=== PATIENT | male | born 1990 | race Caucasian/White ===

== ENCOUNTER 2020-10-01 09:13 | Emergency (ER) | payer MEDICAID ==
[2020-10-01] MEDS ORDERED: Alum Hydrox/Mag Hydrox/Simeth 15 ML, Lidocaine 2% 15 ML PO ONE ×2 (09:54)
--- NOTE | 2020-10-01 09:59 | EDM.PDOC ---
ED HPI GENERAL MEDICAL PROBLEM - General Chief Complaint: Gastrointestinal Problem Stated Complaint: Acid Reflux, BLOOD IN STOOL Time Seen by Provider: 10/01/20 09:45 Source of Information: Reports: Patient, Old Records, RN History Limitations: Reports: No Limitations - History of Present Illness INITIAL COMMENTS - FREE TEXT/NARRATIVE: 29 yo male here with LUQ abdominal pain and blood in his stools. He has had this problem in the past, but when he was scoped (up and down) they didn't find a lot. He was prescribed Protonix and Carafate which he continues on. He had a telemedicine appt yesterday at [facility] here in [place] and was told to make an appt to be seen in person. His problem worsened since then so he decided to come here instead. He reportedly both smokes and uses max doses of ibuprofen every day. No vomiting. No fever. Onset: Gradual, Unknown/Unsure Duration: Day(s):, Getting Worse Location: Reports: Abdomen (LUQ) Quality: Reports: Ache Severity: Moderate Worsens with: Reports: Other (time) Context: Reports: Other (See HPI) Associated Symptoms: Reports: Other (bloody stools). 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: Reports: Acetaminophen, NSAIDS, Other (see below) (usual meds) - Related Data Allergies Allergy/AdvReac Type Severity Reaction Status Date / Time No Known Allergies Allergy Verified 10/01/20 09:26 Home Meds: Home Meds Acetaminophen [Tylenol] 1,000 mg PO QID 10/01/20 [History] DULoxetine HCl [Cymbalta] 120 mg PO DAILY 10/01/20 [History] Ibuprofen [Ibu] 800 mg PO QID 10/01/20 [History] Loratadine [Claritin] 10 mg PO DAILY 10/01/20 [History] Modafinil [Provigil] 200 mg PO DAILY 10/01/20 [History] Multivitamin 1 each PO DAILY 10/01/20 [History] Pantoprazole Sodium [Protonix] 20 mg PO DAILY 10/01/20 [History] SUMAtriptan [Imitrex] 50 mg PO ASDIRECTED PRN 10/01/20 [History] Sucralfate [Carafate] 1 gm PO QID 10/01/20 [History] Vitamin B Complex 1 each PO DAILY 10/01/20 [History] predniSONE [Prednisone] 40 mg PO DAILY 10/01/20 [History] tiZANidine 2 mg PO Q8H 10/01/20 [History] Past Medical History HEENT History: Reports: Impaired Vision Genitourinary History: Reports: Other (See Below) Other Genitourinary History: urgency Musculoskeletal History: Reports: Back Pain, Chronic Neurological History: Reports: Migraines Psychiatric History: Reports: Anxiety, Depression, Panic Attack - Past Surgical History Head Surgeries/Procedures: Reports: None Neurological Surgical History: Reports: None Musculoskeletal Surgical History: Reports: Other (See Below) Other Musculoskeletal Surgeries/Procedures:: shoulder Dermatological Surgical History: Reports: None Social & Family History - Tobacco Use Tobacco Use Status *Q: Current Every Day Tobacco User Years of Tobacco use: 12 Packs/Tins Daily: 1 Used Tobacco, but Quit: No Second Hand Smoke Exposure: No - Caffeine Use Caffeine Use: Reports: Coffee, Soda - Recreational Drug Use Recreational Drug Use: Yes Drug Use in Last 12 Months: Yes Recreational Drug Type: Reports: Marijuana/Hashish Recreational Drug Use Frequency: Daily ED ROS GENERAL - Review of Systems Review Of Systems: See Below Constitutional: Reports: No Symptoms HEENT: Reports: No Symptoms Respiratory: Reports: No Symptoms Cardiovascular: Reports: Lightheadedness (at times) Endocrine: Reports: No Symptoms GI/Abdominal: Reports: Abdominal Pain (LUQ), Black Stool, Bloody Stool, Hematochezia, Melena. Denies: Constipation, Diarrhea, Hematemesis, Nausea, Vomiting : Reports: No Symptoms Musculoskeletal: Reports: No Symptoms Skin: Reports: No Symptoms ED EXAM, GI/ABD - Physical Exam Exam: See Below Exam Limited By: No Limitations General Appearance: Alert, WD/WN, No Apparent Distress Eyes: Bilateral: Normal Appearance Ears: Normal External Exam, Normal Canal, Hearing Grossly Normal, Normal TMs Nose: Normal Inspection, No Blood Throat/Mouth: Normal Inspection, Normal Lips, Normal Oropharynx, Normal Voice, No Airway Compromise Head: Atraumatic, Normocephalic Neck: Normal Inspection Respiratory/Chest: No Respiratory Distress, Lungs Clear, Normal Breath Sounds, No Accessory Muscle Use Cardiovascular: Regular Rate, Rhythm, No Edema GI/Abdominal Exam: Normal Bowel Sounds, Soft, No Distention, Tender (LUQ, only minimally worse with palpation). No: Non-Tender, Distended, Guarding, Rigid, Rebound, Abnormal Bowel Sounds Back Exam: Normal Inspection. No: CVA Tenderness (R), CVA Tenderness (L) Extremities: Normal Inspection, Normal Range of Motion, Non-Tender, No Pedal Edema Neurological: Alert, Oriented, CN II-XII Intact, Normal Cognition, No Motor/Sensory Deficits Psychiatric: Normal Affect, Normal Mood Skin Exam: Warm, Dry, Intact, Normal Color, No Rash Course - Vital Signs Last Recorded V/S: Last Vital Signs Temp 36.6 C 10/01/20 09:32 Pulse 106 H 10/01/20 09:32 Resp 16 10/01/20 09:32 BP 148/95 H 10/01/20 09:32 Pulse Ox 98 10/01/20 09:32 Orthostatic Blood Pressure [ 126/85 Standing] Orthostatic Blood Pressure [ 117/81 Sitting] Orthostatic Blood Pressure [ 123/70 Supine] - Orders/Labs/Meds Orders: Active Orders 24 hr Category Date Time Status Orthostatic Vital Signs [RC] ASDIRECTED Care 10/01/20 09:48 Active Labs: Laboratory Tests 10/01/20 Range/Units 09:48 WBC 11.9 H (4.5-11.0) K/uL RBC 5.33 (4.30-5.90) M/uL Hgb 16.0 H (12.0-15.0) g/dL Hct 47.4 (40.0-54.0) % MCV 89 (80-98) fL MCH 30 (27-31) pg MCHC 34 (32-36) % Plt Count 357 (150-400) K/uL Meds: Medications Discontinued Medications Generic Name Dose Route Start Last Admin Trade Name Freq PRN Reason Stop Dose Admin Al Hydroxide/Mg Hydroxide 15 0 ml 10/01/20 09:54 10/01/20 10:00 ml/ Lidocaine HCl 15 ml PO 10/01/20 09:55 15 ml ONETIME ONE Administration - Re-Assessments/Exams Free Text/Narrative Re-Assessment/Exam: 10/01/20 10:12 Partial relief with GI cocktail po Departure - Departure Time of Disposition: 10:44 Disposition: Home, Self-Care 01 Condition: Fair Clinical Impression: Peptic ulcer hemorrhage, Tobacco use disorder, Chronic pain syndrome - Discharge Information *PRESCRIPTION DRUG MONITORING PROGRAM REVIEWED*: Not Applicable *COPY OF PRESCRIPTION DRUG MONITORING REPORT IN PATIENT NOHEMY: Not Applicable Instructions: Peptic Ulcer, [id number], Steps to Quit Smoking, [id number], Gastrointestinal Bleeding, [id number] Referrals: Bindu Keller PA-C [Primary Care Provider] - Forms: ED Department Discharge Additional Instructions: Stop the ibuprofen. You may continue to use acetaminophen up to 1000 mg every 6 hrs as needed. Substitute celecoxib 200 mg every 12 hrs for the ibuprofen, take with meals. Add Cytotec to help your stomach produce the protective mucous layer that NSAID's destroy. Work hard on quitting smoking as this also makes you at much higher risk of stomach ulcer formation. Drink lots of fluids today, but avoid alcohol, carbonated beverages, any NSAID, or caffeine. F/U in the clinic tomorrow. Return today if your bleeding gets a lot worse. Sepsis Event Note (ED) - Evaluation Sepsis Screening Result: No Definite Risk - Focused Exam Vital Signs: Vital Signs Temp Pulse Resp BP Pulse Ox 10/01/20 09:32 36.6 C 106 H 16 148/95 H 98 10/01/20 09:25 36.6 C 106 H 16 148/95 H 98 - My Orders Last 24 Hours: My Active Orders 10/01/20 09:48 Orthostatic Vital Signs [RC] ASDIRECTED - Assessment/Plan Last 24 Hours: My Active Orders 10/01/20 09:48 Orthostatic Vital Signs [RC] ASDIRECTED
== END 2020-10-01 10:54 | disposition home or self-care (01) ==
LOC: JP.ED 09:13
DX: K27.4 Chronic or unspecified peptic ulcer, site unspecified, with hemorrhage (principal); G89.4 Chronic pain syndrome; R10.12 Left upper quadrant pain; Z72.0 Tobacco use; Z79.899 Other long term (current) drug therapy
CPT/HCPCS: 36415; 85027; 99284; A9270

== ENCOUNTER 2020-11-06 07:51 | Day surgery (SDC) | payer MEDICAID ==
[2020-11-06] MEDS ORDERED: Dextrose 5%-Lactated Ringers 1,000 ML IV SCH (08:30)
[2020-11-06] MEDS ORDERED: Propofol 200 MG/20 ML SDV ONE ×2 (12:53→12:54)
[2020-11-06] MEDS ORDERED: fentaNYL 100 MCG/2 ML SDV ONE (12:54)
[2020-11-06] MEDS ORDERED: Midazolam 1 MG/ML 2 ML SDV ONE (12:54)
--- NOTE | 2020-11-21 14:26 | OR ---
DATE OF PROCEDURE: 11/06/2020 SURGEON: Pietro Dutton MD PREOPERATIVE DIAGNOSIS: History of recent bright red blood per rectum and more remote history of black stools associated with NSAID use. POSTOPERATIVE DIAGNOSES: 1. History of recent bright red blood per rectum and remote history of black stools associated with NSAID use. 2. Upper GI endoscopy showing: a. Small hiatal hernia with mild gastroesophageal reflux disease. b. Mild antral gastritis and proximal duodenitis. 3. Colonoscopic examination showing normal exam other than for excoriated hemorrhoids. OPERATIVE PROCEDURES: 1. Upper GI endoscopy with: a. Biopsies of esophagogastric junction for histological evaluation. b. Biopsies of antrum for CLOtest. 2. Flexible colonoscopy. ANESTHESIA: IV sedation. INDICATION FOR PROCEDURE: The patient presents for upper and lower endoscopy, has history of some black stools on the more remote past, which was felt to be related to NSAID use. The patient appeared to have been switched over to Celebrex for his NSAID, he is also on prednisone chronically which would put him at high risk for problems with gastritis, duodenitis, and peptic ulcer disease. The patient also more recently has had some bright red blood per rectum typically occurring with bowel movements. Plan is to proceed with upper and lower endoscopy with biopsies and polypectomy as indicated. Potential risks including bleeding and perforation were discussed, and the patient wishes to proceed. DETAILS OF PROCEDURE: The patient was taken to the operating room and placed in a left lateral decubitus position. IV sedation was administered, after which the upper GI endoscope was passed orally through the length of the esophagus into the stomach with retroflexion view of the fundus, and thereafter through the pyloric channel into the proximal duodenum. Findings included normal hypopharynx, larynx, upper esophageal sphincter, and esophageal body. At the EG junction, a small hiatal hernia was present with otherwise some mild edema and redness of the distal esophageal mucosa. Remainder of the stomach had some patchy redness in the antrum and duodenal bulb. No erosions or ulcers were seen. At this point, there were no areas of likely recent GI bleeding sites. Biopsies were obtained from the antrum and sent for CLOtest for H pylori. Multiple biopsies had been obtained from esophagogastric junction and sent for histologic evaluation. Attention was then taken to the colonoscopy. Initial digital rectal exam was performed, it was unremarkable. Colonoscope was passed into the rectum with retroflexion revealing some quite excoriated-appearing hemorrhoidal columns. Scope was eventually passed to the cecum. The prep was fairly good along with small amount of liquid stool was present to that level. There were no areas of colitis or diverticular disease, and no polyps or other signs of neoplasia. Scope was then withdrawn. The above findings reconfirmed, and the procedure then concluded. It appears that the present medical management consisting of Celebrex and prednisone along with Protonix, Carafate, and Cytotec are controlling the upper GI inflammation satisfactorily. Over time, one might try to deescalate the management of the upper GI mucosa, perhaps stopping the Carafate, but continuing the Protonix and Cytotec as long as the patient needs to be on prednisone and some form of NSAID, which at this point appears to be Celebrex. The patient's recent bright red blood per rectum almost certainly has to do with hemorrhoidal bleeding. At this point, this has become fairly minimal and referral for hemorrhoid banding could be considered should there be a recurrence of high grade of a persistent bright red blood per rectum. Pietro Dutton MD /[id number]
== END 2020-11-06 14:25 | disposition home or self-care (01) ==
LOC: JP.SDS 07:51
PROVIDERS: ATTEND Surgery
DX: K64.9 Unspecified hemorrhoids (principal); K22.8 Other specified diseases of esophagus; K44.9 Diaphragmatic hernia without obstruction or gangrene; K21.9 Gastro-esophageal reflux disease without esophagitis; K29.90 Gastroduodenitis, unspecified, without bleeding
CPT/HCPCS: 43239; 45378; 87081; 88305; J2250; J2704; J3010; J7121

== ENCOUNTER 2020-12-10 10:01 | Emergency (ER) | payer MEDICAID ==
--- NOTE | 2020-12-10 13:47 | EDM.PDOC ---
ED HPI GENERAL MEDICAL PROBLEM - General Chief Complaint: Gastrointestinal Problem Stated Complaint: ABD AND BACK PAIN Time Seen by Provider: 12/10/20 13:03 Source of Information: Reports: Patient History Limitations: Reports: No Limitations - History of Present Illness INITIAL COMMENTS - FREE TEXT/NARRATIVE: 30 yo male presents to ER with right flank pain. pain initiated this morning right flank and has radiated into the right side of ABD. py does have new dx of ulcerated to colitis and a history of GERD. afebrile. normal day yesterday denies change in activity or straining his back. - Related Data Allergies Allergy/AdvReac Type Severity Reaction Status Date / Time cats Allergy Rash Uncoded 12/10/20 13:10 Home Meds: Home Meds Acetaminophen [Tylenol] 1,000 mg PO QID PRN 10/01/20 [History] Celecoxib 200 mg PO BID PRN #30 capsule 10/01/20 [Rx] DULoxetine HCl [Cymbalta] 120 mg PO DAILY 10/01/20 [History] Loratadine [Claritin] 10 mg PO DAILY 10/01/20 [History] Modafinil [Provigil] 200 mg PO DAILY 10/01/20 [History] Multivitamin 1 each PO DAILY 10/01/20 [History] Pantoprazole Sodium [Protonix] 20 mg PO DAILY 10/01/20 [History] SUMAtriptan [Imitrex] 50 mg PO ASDIRECTED PRN 10/01/20 [History] Sucralfate [Carafate] 1 gm PO QID 10/01/20 [History] Vitamin B Complex 1 each PO DAILY 10/01/20 [History] miSOPROStoL [Cytotec] 200 mcg PO QID #120 tablet 10/01/20 [Rx] tiZANidine 2 mg PO Q8H 10/01/20 [History] buPROPion [Wellbutrin SR] 150 mg PO BID 10/23/20 [History] Ciprofloxacin [Cipro XR] 1 tab PO BID 12/10/20 [History] metroNIDAZOLE [Metronidazole] 1 tab PO TID 12/10/20 [History] Past Medical History HEENT History: Reports: Allergic Rhinitis, Impaired Vision Gastrointestinal History: Reports: Colon Polyp, GERD, Other (See Below) Other Gastrointestinal History: elevated liver enzymes Genitourinary History: Reports: Other (See Below) Other Genitourinary History: urgency, possible renal calculus Musculoskeletal History: Reports: Back Pain, Chronic Neurological History: Reports: Migraines, Other (See Below) Other Neuro History: central pain syndrome, facial neuropathy Psychiatric History: Reports: Anxiety, Depression, Panic Attack Dermatologic History: Reports: Other (See Below) Other Dermatologic History: cyst on abdomen - Past Surgical History Head Surgeries/Procedures: Reports: None GI Surgical History: Reports: Colonoscopy, EGD Neurological Surgical History: Reports: None Musculoskeletal Surgical History: Reports: Other (See Below) Other Musculoskeletal Surgeries/Procedures:: shoulder, rotator cuff repair Dermatological Surgical History: Reports: None Social & Family History - Tobacco Use Tobacco Use Status *Q: Current Every Day Tobacco User Years of Tobacco use: 14 Packs/Tins Daily: 0.5 - Caffeine Use Caffeine Use: Reports: Coffee, Soda ED ROS GENERAL - Review of Systems Review Of Systems: See Below Constitutional: Denies: Fever, Chills, Fatigue Respiratory: Denies: Shortness of Breath, Wheezing, Cough Cardiovascular: Denies: Chest Pain GI/Abdominal: Reports: Abdominal Pain : Reports: Flank Pain Skin: Denies: Rash Neurological: Denies: Dizziness, Headache ED EXAM, GI/ABD - Physical Exam Exam: See Below Exam Limited By: No Limitations General Appearance: Alert, WD/WN, No Apparent Distress Head: Atraumatic, Normocephalic Respiratory/Chest: No Respiratory Distress, Lungs Clear, Normal Breath Sounds, No Accessory Muscle Use, Chest Non-Tender. No: Crackles, Rhonchi, Wheezing Cardiovascular: Regular Rate, Rhythm, No Murmur GI/Abdominal Exam: Soft, Non-Tender Back Exam: Full Range of Motion, CVA Tenderness (R). No: CVA Tenderness (L) Neurological: Alert, Oriented Psychiatric: Normal Affect, Normal Mood Skin Exam: Warm, Dry, Intact Course - Vital Signs Last Recorded V/S: Last Vital Signs Temp 36.3 C 12/10/20 13:19 Pulse 67 12/10/20 14:58 Resp 15 12/10/20 13:19 BP 113/69 12/10/20 14:58 Pulse Ox 99 12/10/20 14:58 - Orders/Labs/Meds Orders: Active Orders 24 hr Category Date Time Status UA W/MICROSCOPIC [URIN] Stat Lab 12/10/20 13:20 Ordered UA W/O MICROSCOPIC [URIN] Stat Lab 12/10/20 13:47 Ordered Ketorolac [Toradol] Med 12/10/20 13:48 Once 30 mg IVPUSH ONETIME ONE Sodium Chloride 0.9% [Normal Saline] 1,000 ml Med 12/10/20 14:00 Ordered IV ASDIRECTED Labs: Laboratory Tests 12/10/20 Range/Units 14:39 Urine Color Brown A (YELLOW) Urine Appearance Cloudy A (CLEAR) Urine pH 6.0 (5.0-8.0) Ur Specific [place] >= 1.030 (1.008-1.030) Urine Protein 100 H (NEGATIVE) mg/dL Urine Glucose (UA) Negative (NEGATIVE) mg/dL Urine Ketones Negative (NEGATIVE) mg/dL Urine Occult Blood Moderate H (NEGATIVE) Urine Nitrite Negative (NEGATIVE) Urine Bilirubin Small H (NEGATIVE) Urine Urobilinogen 0.2 (0.2-1.0) EU/dL Ur Leukocyte Esterase Trace H (NEGATIVE) Urine RBC Packed H (0-5) Urine WBC 10-20 H (0-5) Ur Epithelial Cells Rare Amorphous Sediment Rare Urine Bacteria Moderate Urine Mucus Rare Urine Other Meds: Medications Discontinued Medications Generic Name Dose Route Start Last Admin Trade Name Freq PRN Reason Stop Dose Admin Sodium Chloride 1,000 mls @ 999 mls/hr 12/10/20 14:45 12/10/20 14:56 Normal Saline IV 12/10/20 15:45 999 mls/hr ONETIME ONE Administration Ketorolac Tromethamine 30 mg 12/10/20 14:45 12/10/20 14:56 Ketorolac 30 Mg/Ml Sdv IVPUSH 12/10/20 14:46 30 mg ONETIME ONE Administration - Re-Assessments/Exams Free Text/Narrative Re-Assessment/Exam: 12/10/20 15:56 pain controlled with IV pain medication, evidence of uric stones in UA, blood in UA he did have a CT ABD earlier this month that showed multiple small stones. will DC on pain management and flomax to follow-up in primary care Departure - Departure Time of Disposition: 16:03 Disposition: Home, Self-Care 01 Condition: Good Clinical Impression: Kidney stone - Discharge Information *PRESCRIPTION DRUG MONITORING PROGRAM REVIEWED*: Not Applicable *COPY OF PRESCRIPTION DRUG MONITORING REPORT IN PATIENT NOHEMY: Not Applicable Instructions: Kidney Stones, [id number] Referrals: Bindu Keller PA-C [Primary Care Provider] - Forms: ED Department Discharge Additional Instructions: increase fluid intake with goal of half your body weight in ounces of fluid Ketoralac 10 mg every 6 hours as needed for pain flomax to help the stones pass increase plant base to your diet with goal of 6-9 servings of vegetables and fruits per day Sepsis Event Note (ED) - Evaluation Sepsis Screening Result: No Definite Risk - Focused Exam Vital Signs: Vital Signs Temp Pulse Resp BP Pulse Ox 12/10/20 14:58 67 113/69 99 12/10/20 13:19 36.3 C 87 15 104/63 99 12/10/20 13:04 36.3 C 87 15 104/63 99 - My Orders Last 24 Hours: My Active Orders 12/10/20 13:20 UA W/MICROSCOPIC [URIN] Stat 12/10/20 13:47 UA W/O MICROSCOPIC [URIN] Stat 12/10/20 13:48 Ketorolac [Toradol] 30 mg IVPUSH ONETIME ONE 12/10/20 14:00 Sodium Chloride 0.9% [Normal Saline] 1,000 ml IV ASDIRECTED - Assessment/Plan Last 24 Hours: My Active Orders 12/10/20 13:20 UA W/MICROSCOPIC [URIN] Stat 12/10/20 13:47 UA W/O MICROSCOPIC [URIN] Stat 12/10/20 13:48 Ketorolac [Toradol] 30 mg IVPUSH ONETIME ONE 12/10/20 14:00 Sodium Chloride 0.9% [Normal Saline] 1,000 ml IV ASDIRECTED
[2020-12-10] MEDS ORDERED: Ketorolac 30 MG/ML SDV IVPUSH ONE ×2 (13:48→14:45)
[2020-12-10] MEDS ORDERED: Sodium Chloride 0.9% 1,000 ML IV SCH (14:00)
[2020-12-10] MEDS ORDERED: Sodium Chloride 0.9% 1,000 ML IV ONE (14:45)
== END 2020-12-10 16:24 | disposition home or self-care (01) ==
LOC: JP.ED 10:01
DX: N20.0 Calculus of kidney (principal); K21.9 Gastro-esophageal reflux disease without esophagitis; Z91.048 Other nonmedicinal substance allergy status; Z79.899 Other long term (current) drug therapy; Z72.0 Tobacco use
CPT/HCPCS: 81001; 96374; 99284; J1885; J7030

== ENCOUNTER 2021-03-20 07:03 | Day surgery (SDC) | payer MEDICAID ==
[~2021-03-20 07:03] MED LIST: Sodium Chloride 0.9% 1,000 ML IV SCH
[2021-03-20] MEDS ORDERED: Midazolam 1 MG/ML 2 ML SDV ONE (07:32)
[2021-03-20] MEDS ORDERED: fentaNYL 100 MCG/2 ML SDV ONE (07:32)
[2021-03-20] MEDS ORDERED: Propofol 200 MG/20 ML SDV ONE ×2 (07:32→08:21)
--- NOTE | 2021-03-20 15:05 | OR ---
DATE OF PROCEDURE: 03/20/2021 SURGEON: Orlando Perla MD PROCEDURES: 1. Esophagogastroduodenoscopy. 2. Colonoscopy. FINDINGS: 1. Mild inflammation at the GE junction concerning for reflux disease (biopsied using cold biopsy forceps in all 4 quadrants). 2. Very mild gastritis (biopsied for H. pylori evaluation purposes). 3. Very mild inflammation in the rectum (biopsied using cold biopsy forceps). COMPLICATIONS: None. POLICY SERVICES REPRESENTATIVE: None. ANESTHESIA: MAC. PREOPERATIVE DIAGNOSES: 1. Gastrointestinal bleeding. 2. Abdominal pain. POSTOPERATIVE DIAGNOSES: 1. Gastrointestinal bleeding. 2. Abdominal pain. RISKS: Risks, benefits, alternatives, and limitations including but not limited to infection, bleeding, perforation, false positives, and false negatives were explained to the patient who wished to proceed. PROCEDURE IN DETAIL: The patient was placed in left lateral decubitus position. The EGD scope was introduced and advanced atraumatically into the second part of the duodenum. No evidence of duodenitis or ulceration. No old or new blood. Within the stomach itself, the patient had some very mild gastritis. This was biopsied in proximity for H. pylori evaluation. On retroflex, there was no hiatal hernia. The air was removed from the stomach. The GE junction had 2 areas less than 1 cm concerning for reflux disease. This was biopsied using cold biopsy forceps and the remaining 3 quadrants. The remainder of esophagus was normal. Digital rectal exam performed next. Scope was introduced and advanced atraumatically to the ileocecal valve. A photo was taken of the appendiceal orifice. The scope was brought back to the ascending, transverse, and descending colon and retroflexed. The only inflammation noted in the colon was in the rectum, which may have been artifactual. However, this was biopsied using cold biopsy forceps. No diverticulosis. No masses. No polyps. No significant or obvious evidence of colitis. No bleeding. On retroflexion, he had no prominent hemorrhoids. Greater than 8 minutes was spent removing the scope. The prep was acceptable with approximately 90% of luminal surface could be seen. The patient tolerated the procedure well. Orlando Perla MD /[id number]
== END 2021-03-20 09:43 | disposition home or self-care (01) ==
LOC: JP.SDS 07:03
PROVIDERS: ATTEND Surgery
DX: K62.89 Other specified diseases of anus and rectum (principal); K29.50 Unspecified chronic gastritis without bleeding; K20.90 Esophagitis, unspecified without bleeding
CPT/HCPCS: 43239; 45380; J2250; J2704; J3010; J7030; 88305; 88342

== ENCOUNTER 2021-06-20 06:54 | Emergency (ER) | payer MEDICAID ==
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
== END 2021-06-20 08:41 | disposition home or self-care (01) ==
LOC: JP.ED 06:54
DX: T58.91XA Toxic effect of carbon monoxide from unspecified source, accidental (unintentional), initial encounter (principal); K21.9 Gastro-esophageal reflux disease without esophagitis; Z91.048 Other nonmedicinal substance allergy status; Z79.899 Other long term (current) drug therapy
CPT/HCPCS: 82803; 99284

== ENCOUNTER 2022-04-30 10:58 | Emergency (ER) | payer MEDICAID | END 2022-04-30 11:35 | disposition home or self-care (01) | LOC: JP.ED 10:58 | DX: L72.0 Epidermal cyst (principal); F17.210 Nicotine dependence, cigarettes, uncomplicated; Z91.048 Other nonmedicinal substance allergy status; Z79.899 Other long term (current) drug therapy | CPT/HCPCS: 99282 ==

== ENCOUNTER 2022-06-19 12:09 | Emergency (ER) | payer MEDICAID ==
[2022-06-19 13:08] LABS: CORONAVIRUS COVID-19 NAA NEGATIVE (NEGATIVE)
== END 2022-06-19 13:40 | disposition home or self-care (01) ==
LOC: JP.ED 12:09
DX: J10.1 Influenza due to other identified influenza virus with other respiratory manifestations (principal); K21.9 Gastro-esophageal reflux disease without esophagitis; Z91.048 Other nonmedicinal substance allergy status; Z79.899 Other long term (current) drug therapy; Z20.822 Contact with and (suspected) exposure to COVID-19
CPT/HCPCS: 0241U; 99283

== ENCOUNTER 2022-08-02 17:28 | Emergency (ER) | payer MEDICAID ==
[2022-08-02] MEDS ORDERED: Ketorolac 15 MG/ML SDV IM ONE (17:48)
== END 2022-08-02 18:34 | disposition home or self-care (01) ==
LOC: JP.ED 17:28
DX: S80.02XA Contusion of left knee, initial encounter (principal); S84.92XA Injury of unspecified nerve at lower leg level, left leg, initial encounter; K21.9 Gastro-esophageal reflux disease without esophagitis; F41.9 Anxiety disorder, unspecified; F32.A Depression, unspecified; Z79.899 Other long term (current) drug therapy; Z91.048 Other nonmedicinal substance allergy status
CPT/HCPCS: 73562-26-LT; 73562-LT; 96372; 99283; J1885

== ENCOUNTER 2023-05-01 12:21 | Emergency (ER) | payer OTHER, MEDICAID ==
[2023-05-01] MEDS ORDERED: Bacitracin Oint 1 GM U/D Packet TOP ONE (12:43)
[2023-05-01] MEDS ORDERED: Lidocaine 1% 5 ML VIAL INJECT ONE (12:43)
== END 2023-05-01 13:55 | disposition home or self-care (01) ==
LOC: JP.ED 12:21
DX: S61.042A Puncture wound with foreign body of left thumb without damage to nail, initial encounter (principal); K21.9 Gastro-esophageal reflux disease without esophagitis; Z91.048 Other nonmedicinal substance allergy status; W45.8XXA Other foreign body or object entering through skin, initial encounter; Y93.H3 Activity, building and construction; Y92.69 Other specified industrial and construction area as the place of occurrence of the external cause; Y99.0 Civilian activity done for income or pay; Z79.899 Other long term (current) drug therapy
CPT/HCPCS: 64450; 99283